=== PATIENT | female | born 2000 | race Caucasian/White ===

== ENCOUNTER 2021-03-15 14:24 | Emergency (ER) | payer OTHER ==
[~2021-03-15 14:24] MED LIST: DIFLUCAN150 MG PO; MEDROL 4MG DOSEP4 MG PO; PREDNISONE 20MG20 MG PO; VIBRAMYCIN100 MG PO; ZYRTEC10 MG PO
[2021-03-15 16:12] LABS: BILIRUBIN NEGATIVE (NEGATIVE); BLOOD NEGATIVE Ery/uL (NEGATIVE); CLARITY CLEAR (CLEAR); COLOR YELLOW (YELLOW); GLUCOSE (U) NORMAL (NORMAL); LEUKOCYTES NEGATIVE Leu/uL (NEGATIVE); NITRITE NEGATIVE (NEGATIVE); PROTEIN NEGATIVE (NEGATIVE); SPECIFIC GRAVITY >=1.030 (1.001-1.030); UROBILINOGEN 0.2 mg/dL (0.2-1.0)
[2021-03-16 01:05] LABS: AMPHETAMINES NEGATIVE (NEGATIVE); BARBITURATES NEGATIVE (NEGATIVE); ECSTASY (MDMA) NEGATIVE (NEGATIVE); MARIJUANA (THC) POSITIVE (NEGATIVE); METHADONE NEGATIVE (NEGATIVE); OPIATES NEGATIVE (NEGATIVE); OXYCODONE NEGATIVE (NEGATIVE)
[2021-03-17 21:09] LABS: CHLAMYDIA TRACHOMATIS, NAA Negative (Negative); NEISSERIA GONORRHOEAE, NAA Negative (Negative)
== END 2021-03-16 12:00 | disposition home or self-care (01) ==
LOC: FER 14:24
PROVIDERS: Emergency Medicine
DX: S51.812A Laceration without foreign body of left forearm, initial encounter (principal); O99.345 Other mental disorders complicating the puerperium; F53.0 Postpartum depression; Z88.0 Allergy status to penicillin; Z88.8 Allergy status to other drugs, medicaments and biological substances; Z88.2 Allergy status to sulfonamides; Z88.5 Allergy status to narcotic agent; Z20.822 Contact with and (suspected) exposure to COVID-19; X78.1XXA Intentional self-harm by knife, initial encounter; Y92.009 Unspecified place in unspecified non-institutional (private) residence as the place of occurrence of the external cause
CPT/HCPCS: 80305; 81003; 87210; 87491; 87591; U0002

== ENCOUNTER 2021-03-28 19:49 | Emergency (ER) | payer OTHER ==
[2021-03-29] MEDS ORDERED: EPIPEN 2-P0.3 MG/0.3 IM (05:58)
[2021-03-29] MEDS ORDERED: MEDROL 4MG DOSEP4 MG PO (05:58)
[2021-03-29] MEDS ORDERED: ONDANSETRON ODT4 MG PO (05:58)
== END 2021-03-29 06:25 | disposition home or self-care (01) ==
LOC: FER 19:49
DX: U07.1 COVID-19 (principal); T78.40XA Allergy, unspecified, initial encounter; Z88.0 Allergy status to penicillin; Z88.1 Allergy status to other antibiotic agents; Z88.2 Allergy status to sulfonamides; Z88.5 Allergy status to narcotic agent; X58.XXXA Exposure to other specified factors, initial encounter
CPT/HCPCS: 71045; 93005; 96372; J0171; J1100; J2405; J7030; U0002

== ENCOUNTER 2021-08-13 17:27 | Emergency (ER) | payer OTHER ==
[~2021-08-13 17:27] MED LIST changes: +EPIPEN 2-P0.3 MG/0.3 IM; +ONDANSETRON ODT4 MG PO
[2021-08-13 18:58] LABS: BILIRUBIN NEGATIVE (NEGATIVE); BLOOD NEGATIVE Ery/uL (NEGATIVE); CLARITY CLEAR (CLEAR); COLOR YELLOW (YELLOW); GLUCOSE (U) NORMAL (NORMAL); LEUKOCYTES 2+ Leu/uL (NEGATIVE); NITRITE NEGATIVE (NEGATIVE); PROTEIN NEGATIVE (NEGATIVE); SPECIFIC GRAVITY >=1.030 (1.001-1.030); UROBILINOGEN 0.2 mg/dL (0.2-1.0)
[2021-08-13 19:05] LABS: BACTERIA 3+; SQUAMOUS EPITHELIAL CELLS >50
[2021-08-13 19:23] LABS: INFLUENZA A NAA NEGATIVE (NEGATIVE)
[2021-08-13 19:25] LABS: CORONAVIRUS 2019 SARS-COV-2 POSITIVE (NEGATIVE)
[2021-08-13] MEDS ORDERED: ONDANSETRON HCL4 MG PO (20:06)
[2021-08-13] MEDS ORDERED: MACROBID100 MG PO (20:06)
[2021-08-17 16:09] LABS: CHLAMYDIA TRACHOMATIS, NAA Positive (Negative); NEISSERIA GONORRHOEAE, NAA Negative (Negative)
== END 2021-08-13 20:13 | disposition home or self-care (01) ==
LOC: FER 17:27
PROVIDERS: Nurse Practitioner Family
DX: U07.1 COVID-19 (principal); N39.0 Urinary tract infection, site not specified; F17.290 Nicotine dependence, other tobacco product, uncomplicated; Z88.0 Allergy status to penicillin; Z88.1 Allergy status to other antibiotic agents; Z88.2 Allergy status to sulfonamides; Z88.5 Allergy status to narcotic agent; Z28.310 Unvaccinated for COVID-19
CPT/HCPCS: 81001; 87088; 87491; 87591; 99284; Q0162; U0002